=== PATIENT | male | born 1940 | race Caucasian/White ===

== ENCOUNTER 2019-05-07 09:30 | Outpatient (CLI) | payer MEDICARE, BC, SELFPAY ==
[2019-05-07 10:00] VITALS: BP 135/66; PULSE 73; RESP 18; TEMP 37.3; O2SAT 96
[2019-05-07] MEDS: methylPREDNISolone ACETATE 80 MG/ML VIAL IJ (10:54)
[2019-05-07] MEDS: Omnipaque 240 MG/ML 50 ML BTL IJ (10:54)
--- NOTE | 2019-05-07 10:58 | DI.RAD_ITS ---
EXAM: XR PAIN CLINIC LUMBAR SP 2V CLINICAL HISTORY: Lumbar Epidural Steroid Injection, Lumbar radiculopathy. TECHNIQUE: Fluoroscopy was provided for the referring physician for guidance with performing injecti on procedure. Fluoro time: 23.4 sec, 14.07 mGy COMPARISON: No exams were available for comparison FINDINGS: Please see procedure note for details.
--- NOTE | 2019-05-07 10:58 | PDOC.PAIN ---
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 He is directly referred [place] Rodríguez [place] [facility] [place] Pre[place]operative diagnosis: lumbar radiculopathy, lumbar spinal stenosis, neurogenic claudication HENNA EUBANKS has been referred to the [facility] for lumbar epidural steroid injection. The patient was greeted by the nurse who verified patients name and . Patient was then taken to the fluoroscopy suite. The patient was interviewed and the medial record reviewed. There were no medical, pharmacologic, radiographic, or other structural contraindications to attempting fluoroscopically guided lumbar epidural steroid injection. Risks and expected side effects as well as potential benefits of the procedure were reviewed and voiced concerns expressed. The patient consent form was signed and witnessed. Standard patient time-out procedure was performed. The patient was placed in the prone position on the fluoroscopy table and automated blood pressure cuff and pulse oximeter applied. The skin entry point for entering/approaching the epidural space by a L5-S1 and marked. Following thorough chlorhexadine preparation of the skin and draping and 1% lidocaine infiltration of the skin entry point and subcutaneous tissues, a 18 gauge Touhy needle was placed under fluoroscopic guidance and with loss of resistance technique into the epidural space. Needle tip placement and depth were aided and confirmed by fluoroscopy. There was no paresthesia or return of blood or CSF through the needle. 1 cc's of Omnipaque 240 was injected with clear epidural spread confirmed with fluoroscopy. 80mg depomedrol was injected, this was followed by 1% preservative lidocaine and 2cc of preservative free normal saline. There was not any unusual discomfort expressed by HENNA EUBANKS. Patient's vital signs were stable throughout the procedure and were as recorded in nursing records. Follow up plans and appointments were discussed with patient. Post procedure instruction was given as documented in nursing records and having met discharge criteria and was discharged from the [facility] Management Center. COMMENTS: If this procedure is helpful, it can be completed up to 3 times per 12 months. Vinod Velásquez MD Pain Management
[2019-05-07 11:02] VITALS: BP 179/69; PULSE 76; RESP 17; O2SAT 96
== END 2019-05-07 09:50 ==
PROVIDERS: PCP Internal Medicine; Visit Provider Internal Medicine
DX: M54.16 Radiculopathy, lumbar region (principal); M48.062 Spinal stenosis, lumbar region with neurogenic claudication
CPT/HCPCS: 62323; 72100; J1040; Q9967

== ENCOUNTER 2020-03-05 01:16 | Outpatient (CLI) | payer MEDICARE, BC, SELFPAY ==
--- NOTE | 2020-03-05 09:15 | DI.NM_ITS ---
APPROVED REPORT Exam: Pharmacologic Patient Location: Out-Patient Room/Bed: Stress Nurse: Yuko Kowalski RN BMI: 35.43 Baseline Rhythm: Sinus Rhythm Indications: Syncope. CAD. Sleep Apnea. Hyperlipidemia. Medical History Medical History: COPD, GERD, HTN, Hyperlipidemia, Diabetes, Cardiac Medications: Bisoprololol. Amlodipine. Losartan. Simvastatin. Torsemide. Potassium citrate. O meprazole. Allergies: No known drug allergies Cardiac Risk Factors: HTN, Hyperlipidemia, DM, FHX of CAD, Asthma, COPD, Former smoker Exercise History: Indeterminate Physical Disabilities: Legs Lung Sounds: Clear to auscultation Heart Sounds: Regular Stress Test Details Test: Pharmacologic stress testing performed using 0.4 mg of regadenoson per 5 mL given IV over 10 s econds. Nuclear Acquisition: Rest Tc-99m/Stress Tc-99m 1 day Rest Isotope: Tc-99m Sestamibi. Dose: 15.2 Date: 03/05/2020 Injection Time: 0945 Stress Isotope: Tc-99m Sestamibi. Dose: 45.0 Date: 03/05/2020 Injection Time: 1317 HR Resting HR Supine: 70 bpm Max Heart Rate (APMHR): 142 bpm Target HR (85% APMHR): 120 bpm Max HR Achieved: 83 bpm % of APMHR: 58 HR response to stress: Abnormal HR response to stress BP Resting BP Supine: 140/88 mmHg Max BP: 158/66 mmHg ECG Resting ECG: Sinus Rhythm Stress ECG: Sinus Rhythm ST Change: No ST segment changes Recovery ECG: Sinus Rhythm Recovery ST Change: No ST segment changes Recovery Arrhythmia: None Clinical Stress Symptoms: No significant symptoms post Lexiscan injection. Stress ECG Conclusion 1. Pharmacological stress test. 2. The patient no symptoms suggestive of ischemia 3. EKG portion of this exam is nondiagnostic. Stress Test Summary STAGE HR BP Symptoms NOTES Supine 70 140/88 1 min post Lexiscan injection 83 158/66 3 min post Lexiscan injection 82 136/70 6 min post Lexiscan injection 78 144/72 MPI Conclusion Gating failure prevented calculation of ejection fraction. There were no wall motion abnormalities. There was no evidence of ischemia on the imaging portion of the exam. This likely represents a normal SPECT stress test despite incomplete data. Radiologist Interpretation Radiologist Interpretation by: Mario Alberto Pierson MD Interpretation Date/Time: 03/05/2020 16:12:49
[2020-03-05] MEDS: Regadenoson 0.4 MG/5 ML SYR IVP (13:39)
== END 2020-03-05 01:36 ==
PROVIDERS: PCP Internal Medicine; Visit Provider Internal Medicine Interventional Cardiology
DX: I25.10 Atherosclerotic heart disease of native coronary artery without angina pectoris (principal); I10 Essential (primary) hypertension; E78.5 Hyperlipidemia, unspecified; Z82.49 Family history of ischemic heart disease and other diseases of the circulatory system; J44.9 Chronic obstructive pulmonary disease, unspecified; Z87.891 Personal history of nicotine dependence
CPT/HCPCS: 78452; 93016; 93018; 93017; J2785

== ENCOUNTER 2020-03-24 08:41 | Outpatient (CLI) | payer MEDICARE, BC, SELFPAY ==
[2020-03-24 08:55] VITALS: BP 149/69; PULSE 70; RESP 16; TEMP 37.1; O2SAT 99
--- NOTE | 2020-03-24 09:03 | PDOC.PAIN ---
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 He is directly referred from Dr Rodríguez at [facility] [place]. His last injection was on 04/2019 which provided nearly 10 months of significant pain relief. he has rare instance of leg pain, most of pain is localized to his lower back. Of note, patient's serum glucose is 175 today. He celebrate a Irish Thanksgiving yesterday. His most recent A1c is 7.8. I discussed with him steroid can increase his blood glucose level and he needs to monitor closely and may need to adjust his insulin pre-/post- meal accordingly. I also emphasized with him that steroid may suppress his immune system and may increase his risk of infection. He voiced understanding and wishes to proceed. Pre-operative diagnosis: lumbar spinal stenosis HENNA EUBANKS has been referred to the Pain Management Center for lumbar epidural steroid injection. The patient was greeted by the nurse who verified patients name and . Patient was then taken to the fluoroscopy suite. The patient was interviewed and the medial record reviewed. There were no medical, pharmacologic, radiographic, or other structural contraindications to attempting fluoroscopically guided lumbar epidural steroid injection. Risks and expected side effects as well as potential benefits of the procedure were reviewed and voiced concerns expressed. The patient consent form was signed and witnessed. Standard patient time-out procedure was performed. The patient was placed in the prone position on the fluoroscopy table and automated blood pressure cuff and pulse oximeter applied. The skin entry point for entering/approaching the epidural space by a L5-S1 and marked. Following thorough chlorhexadine preparation of the skin and draping and 1% lidocaine infiltration of the skin entry point and subcutaneous tissues, a 18 gauge Touhy needle was placed under fluoroscopic guidance and with loss of resistance technique into the epidural space. Needle tip placement and depth were aided and confirmed by fluoroscopy. There was no paresthesia or return of blood or CSF through the needle. 1 cc's of Omnipaque 240 was injected with clear epidural spread confirmed with fluoroscopy. 80mg depomedrol was injected, this was followed by 1% preservative lidocaine and 2cc of preservative free normal saline. There was not any unusual discomfort expressed by HENNA EUBANKS. Patient's vital signs were stable throughout the procedure and were as recorded in nursing records. Follow up plans and appointments were discussed with patient. Post procedure instruction was given as documented in nursing records and having met discharge criteria and was discharged from the Pain Management Center. COMMENTS: If this procedure is helpful, it can be completed up to 3 times per 12 months. Vinod Velásquez MD Pain Management
[2020-03-24] MEDS: methylPREDNISolone ACETATE 80 MG/ML VIAL IJ (09:27)
[2020-03-24 09:30] VITALS: BP 162/74; PULSE 78; RESP 22; O2SAT 97
[2020-03-24] MEDS: Omnipaque 240 MG/ML 50 ML BTL IJ (09:30)
--- NOTE | 2020-03-24 09:35 | DI.RAD_ITS ---
EXAM: XR PAIN CLINIC LUMBAR SP 2V CLINICAL HISTORY: Dx: Lumbar Radiculopathy,lumbar epidural steroid injection TECHNIQUE: Fluoroscopy was provided for the referring physician for guidance with performing injecti on procedure. COMPARISON: No exams were available for comparison FINDINGS: Please see procedure note for details. FLUORO TIME: 16.3 seconds RADIATION DOSE DELIVERED:
== END 2020-03-24 09:01 ==
PROVIDERS: PCP Internal Medicine; Visit Provider Internal Medicine
DX: M48.062 Spinal stenosis, lumbar region with neurogenic claudication (principal)
CPT/HCPCS: 62323; 72100; J1040; Q9967

== ENCOUNTER 2022-06-16 09:02 | Outpatient (CLI) | payer MEDICARE, BC, SELFPAY ==
[2022-06-16 09:16] VITALS: BP 134/55; PULSE 64; RESP 20; TEMP 36.6; O2SAT 96
--- NOTE | 2022-06-16 09:58 | PDOC.PAIN_ITS ---
Date of service: 06/16/22 Time of Service: 10:14 Pain Clinic Procedure Note Procedure Note Procedure Note: Lumbar/Sacral Medial Branch Blocks Tray Haile has been referred to the Pain Management Center for lumbar/sacral medial branch blocks. COMMENTS: He was evaluated by Dr. Babin, who recommended this procedure. Pre- procedure pain VAS was 7/10. Dx: Lumbosacral spondylosis without myelopathy Patient was interviewed and the medical record reviewed. There were no medical, pharmacologic, radiographic or other structural contraindications to attempting fluoroscopically guided local anesthetic lumbar/sacral medial branch blocks. Risks and expected side effects as well as potential benefit of the procedure were reviewed and voiced concerns addressed. The printed consent form was signed and witnessed. Standard time-out procedure was performed. Patient was placed in the prone position on the fluoroscopy table and automated blood pressure cuff and pulse oximeter applied. The skin entry points for approaching the anatomic target points of the segmental medial branches of bilateral L3-L5DR were identified with anfluoroscopy and marked. Following thorough Chlorhexadine preparation of the skin and draping and 1% lidocaine infiltration of the skin entry points and subcutaneous tissues, a 22 gauge spinal needle was placed under fluoroscopic guidance down on to the target point for each respective segmental medial branch.Position was confirmed in A/P, oblique and lateral views with 0.25ml of omnipaque 240. Coult be this method .5ml 0.5% Bupivacaine was injected or 1% Lidocaine. Vital signs were stable throughout the procedure and were as recorded in the docflowsheet by the nursing staff. Follow up plans and appointments were discussed and was instructed to keep careful note of how the usual pain was modified by these injections. Specifically was asked to keep a pain diary for the next 24 hours using a numeric pain scale of 0-10 and report these results at the follow-up visit. Post procedure instruction was given as documented in the nursing documentation and having met discharge criteria. Patient was discharged from the Pain Management Center. Based on the medial branches blocked today, if the patient has adequate relief and we are able to proceed to radiofrequency ablation, the treatment should result in the denervation of the bilateral L4-L5 and L5-S1 FACET JOINTS. We would expect to denervate a total of 4 facets during the radiofrequency ablation. COMMENTS: Post-procedure pain VAS was 0/10. Alon Ferrell DO, MPH [facility] [place]-[facility] [place] CC: Toni Ayala
--- NOTE | 2022-06-16 09:58 | DI.RAD_ITS ---
Exam(s) XR PAIN CLINIC LUMBAR SP 2V EXAM: XR PAIN CLINIC LUMBAR SP 2V CLINICAL HISTORY: Dx: Lumbar Spondylosis TECHNIQUE: 2D and realtime digital imaging was performed. Radiologist not present. CONTRAST MATERIAL: None. COMPARISON: No exams were available for comparison FINDINGS: Fluoroscopy was provided for pain management therapy. Please refer to procedure report or details. Cumulative dose: Ka,r=38.49 mGy IMPRESSION: RADIATION DOSE DELIVERED:
[2022-06-16] MEDS: Bupivacaine 0.5% Pres-Free 10 ML VIAL IJ (10:01)
[2022-06-16] MEDS: Omnipaque 240 MG/ML 50 ML BTL IJ (10:01)
[2022-06-16 10:11] VITALS: BP 156/75; PULSE 77; RESP 21; O2SAT 97
== END 2022-06-16 09:03 | disposition home or self-care (01) ==
LOC: PC 09:02
PROVIDERS: PCP Internal Medicine; Visit Provider Preventive Medicine Occupational Medicine
DX: M47.817 Spondylosis without myelopathy or radiculopathy, lumbosacral region (principal); M54.50 Low back pain, unspecified
CPT/HCPCS: 64493; 64494; 72100; Q9967

== ENCOUNTER 2022-07-20 10:55 | Outpatient (CLI) | payer MEDICARE, BC, SELFPAY ==
--- NOTE | 2022-07-20 06:00 | DI.RAD_ITS ---
Exam(s) XR PAIN CLINIC LUMBAR SP 2V EXAM: XR PAIN CLINIC LUMBAR SP 2V CLINICAL HISTORY: Dx: Lumbar Spondylosis TECHNIQUE: 2D and realtime digital imaging was performed. CONTRAST MATERIAL: Refer to procedure report. COMPARISON: No exams were available for comparison FINDINGS: Fluoroscopy was provided for Dr. Ferrell during the performance of a lumbar medial branch block. Ba jacob refer to the procedure report for complete details. Ka,r=41 mGy IMPRESSION:
[2022-07-20 11:18] VITALS: BP 138/64; PULSE 75; RESP 20; TEMP 36.7; O2SAT 95
[2022-07-20] MEDS: Lidocaine 2% Pres-Free 5 ML VIAL IJ (11:57)
[2022-07-20] MEDS: Omnipaque 240 MG/ML 50 ML BTL IJ (11:57)
[2022-07-20 12:08] VITALS: BP 164/85; PULSE 74; RESP 22; O2SAT 93
--- NOTE | 2022-07-20 12:08 | PDOC.PAIN_ITS ---
Date of service: 07/20/22 Time of Service: 12:13 Pain Clinic Procedure Note Procedure Note Procedure Note: Lumbar/Sacral Medial Branch Blocks Tray Haile has been referred to the Pain Management Center for lumbar/sacral medial branch blocks. COMMENTS: He did very well with his first LMBBs Pre-procedure pain VAS was 6/10. DX: Lumbosacral spondylosis without myelopathy Patient was interviewed and the medical record reviewed. There were no medical, pharmacologic, radiographic or other structural contraindications to attempting fluoroscopically guided local anesthetic lumbar/sacral medial branch blocks. Risks and expected side effects as well as potential benefit of the procedure were reviewed and voiced concerns addressed. The printed consent form was signed and witnessed. Standard time-out procedure was performed. Patient was placed in the prone position on the fluoroscopy table and automated blood pressure cuff and pulse oximeter applied. The skin entry points for approaching the anatomic target points of the segmental medial branches of bilateral L3-L5 were identified with anfluoroscopy and marked. Following thorough Chlorhexadine preparation of the skin and draping and 1% lidocaine infiltration of the skin entry points and subcutaneous tissues, a 22 gauge spinal needle was placed under fluoroscopic guidance down on to the target point for each respective segmental medial branch. Position was confirmed in A/P, oblique and lateral views with 0.25ml of omnipaque 240. At this point I injected 0.5cc of 2% Lidocaine at each segmental sensory nerve. Vital signs were stable throughout the procedure and were as recorded in the docflowsheet by the nursing staff. Follow up plans and appointments were discussed and was instructed to keep careful note of how the usual pain was modified by these injections. Specifically was asked to keep a pain diary for the next 4 hours using a numeric pain scale of 0-10 and report these results at the follow-up visit. Post procedure instruction was given as documented in the nursing documentation and having met discharge criteria. Patient was discharged from the Pain Management Center. Based on the medial branches blocked today, if the patient has adequate relief and we are able to proceed to radiofrequency ablation, the treatment should result in the denervation of the bilateral L4-L5 and L5-S1 FACET JOINTS. We would expect to denervate a total of 4 facets during the radiofrequency ablation. COMMENTS: Post-procedure pain VAS was 0/10. Alon Ferrell DO, MPH [facility] Management [facility] CC: Toni Ayala
== END 2022-07-20 10:56 | disposition home or self-care (01) ==
LOC: PC 10:56
PROVIDERS: PCP Internal Medicine; Visit Provider Preventive Medicine Occupational Medicine
DX: M47.817 Spondylosis without myelopathy or radiculopathy, lumbosacral region (principal); M54.50 Low back pain, unspecified
CPT/HCPCS: 64493; 64494; 72100; Q9967

== ENCOUNTER 2022-08-25 07:45 | Outpatient (CLI) | payer MEDICARE, BC, SELFPAY ==
[2022-08-25 07:55] VITALS: BP 133/67; PULSE 77; RESP 20; TEMP 36.3; O2SAT 96
[2022-08-25] MEDS: Lactated Ringers 500 ML 80 ML IV (08:29)
[2022-08-25] MEDS: fentaNYL 100 MCG/2 ML VIAL IVP (08:29)
--- NOTE | 2022-08-25 09:06 | DI.RAD_ITS ---
Exam(s) XR PAIN CLINIC LUMBAR SP 2V EXAM: XR PAIN CLINIC LUMBAR SP 2V CLINICAL HISTORY: Dx: Lumbar Spondylosis. TECHNIQUE: Fluoroscopy was provided for the referring physician for guidance with performing pain cl inic injection procedure. COMPARISON: No exams were available for comparison FINDINGS: Please see procedure note for details. Fluoro time: 78.3 seconds RADIATION DOSE DELIVERED: Ker=36.35 mGy
[2022-08-25 09:17] VITALS: BP 156/69; PULSE 68; RESP 18; O2SAT 96
[2022-08-25] MEDS: Bupivacaine 0.5% Pres-Free 10 ML VIAL IJ (09:25)
[2022-08-25] MEDS: methylPREDNISolone ACETATE 40 MG/ML VIAL IJ (09:25)
[2022-08-25] MEDS: Lidocaine 2% Pres-Free 5 ML VIAL IJ (09:25)
--- NOTE | 2022-08-25 09:39 | PDOC.PAIN ---
Date of service: 08/25/22 Time of Service: 09:39 Pain Clinic Procedure Note Procedure Note Procedure Note: Bilateral Lumbar Radiofrequency with Aven[employer] Machine PROCEDURE NOTE Date of Service: August 25, 2022 Patient: Tray Haile Provider: Alon Ferrell, MPH Pre Operative Diagnosis: Lumbosacral Spondylosis without Myelopathy Post Operative Diagnosis: Same Pre procedure pain; VAS= 4/10 PROCEDURE: Radiofrequency Ablation of medial branches - [Bilateral L3 L4 L5 and lateral branches of bilateral S1. Tray Haile was brought into the fluoroscopy suite and positioned into the prone position on the fluoroscopy table and allowed to adjust to a position of comfort. A grounding pad was placed on the right abdomen. The lumbar region was widely prepped with a chloraprep solution, allowed to air dry and draped in standard sterile surgical fashion. Local anesthesia was provided by 4 mL of 2 % Lidocaine delivered with a 25g needle. A 17g 100 mm radiofrequency introducer needle was placed to the planned anatomic targets guided with intermittent fluoroscopy with a perpendicular approach to terminally place at the junction of the superior articular process and the transverse process of the bilateral L4 L5, the base of the sacral ala on the bilateral for the L5 medial branch nerve and the area between base of the sacral ala to the S1 foramen bilaterally. The stylets were removed and radiofrequency probes with a 4mm active tip were then inserted. Needle tip position of the probes was verified in the AP, oblique, and lateral views. At each site, the medial branch nerve was stimulated at 2 Hz to a maximum 1-2 volts determined to finalize safe needle and electrode placement. The patient was awake and responsive during this portion of the procedure. Each target was anesthetized with 1-2 mL of 2 % Lidocaine for anesthesia for lesioning and then each target was lesioned at 80 degrees Celsius for 2 minutes and 30 seconds. Tissue impedences were noted to be between 250 and 500 Ohms. I then injected 1/4 cc of Depomedrol (40 mg/cc) followed by 1 cc of 0.5% Bupivacaine at each segmental sensory nerve. Electrodes and needles were then removed and bandages placed over the needle placement sites, the patient then returned to the supine position on a stretcher and transported to the recovery room without hemodynamic, neurologic, or allergic reactions. Fluoroscopic images were printed for hard copy recording and digitally archived. POST PROCEDURE EVALUATION: IMPRESSION: 1. Summary of procedure. Medication given is documented in the MAR. 2. The patient will be contacted in 1-3 weeks 3. Estimated Blood Loss: <5 mls 4. Fluoroscopy time: Documented in the EMR. Follow up plans and appointments were discussed with the Tray . Post procedure instruction was given as documented in nursing documentation and having met discharge criteria, Tray was discharged from the Pain Management Center. COMMENTS: No apparent complications. Post-procedure pain: VAS= 0/10. F/U with our office as needed. Alon Ferrell DO, MPH [facility]-Pain Management [facility] Management
== END 2022-08-25 07:46 | disposition home or self-care (01) ==
PROVIDERS: PCP Internal Medicine; Visit Provider Preventive Medicine Occupational Medicine
DX: M47.817 Spondylosis without myelopathy or radiculopathy, lumbosacral region (principal); M54.50 Low back pain, unspecified
CPT/HCPCS: 64635; 64636; 72100; J1030; J3010